=== PATIENT | female | born 1935 | race Caucasian/White ===

== ENCOUNTER 2022-05-14 23:40 | Inpatient (IN) | payer MEDICARE, MEDICAID ==
[~2022-05-14] VITALS: Ht 157.5 cm; Wt 64.9 kg
[2022-05-14] MEDS ORDERED: ACETAMINOPHEN 325MG TABLET PO STA (23:44)
[2022-05-14] MEDS ORDERED: AZITHROMYCIN 500MG/250ML 250 ML IV ONE (23:45)
[2022-05-14] MEDS ORDERED: SODIUM CHLORIDE 0.9% 1,000 ML IV ONE (23:45)
[2022-05-14] MEDS ORDERED: CEFTRIAXONE 1 G PREMIX 50 ML IV ONE (23:45)
[2022-05-15] MEDS ORDERED: ACETAMINOPHEN 650MG SUPP PR ONE
[2022-05-15 00:13] LABS: BASOPHILS % 0.2 % (0.0-2.0); EOSINOPHILS % 0.2 % (0.0-5.0); HEMATOCRIT. 37.3 % (36.0-48.0); HEMOGLOBIN. 11.4 g/dL (12.0-16.0); MEAN CORPUSCULAR VOLUME 98.3 fL (81.0-99.0); MONOCYTES % 6.1 % (2.0-8.0); NEUTROPHILS % 78.5 % (40.0-76.0); PLATELET 270 x1000/uL (130-400); RED BLOOD CELL COUNT 3.79 mill/uL (4.2-5.4); RED CELL DISTRIBUTION WIDTH 16.2 % (11.6-14.6)
[2022-05-15 00:22] LABS: CHLORIDE 115 mEq/L (98-107)
[2022-05-15 00:36] LABS: INR 1.1; PROTHROMBIN TIME 11.4 sec (9.6-11.0)
[2022-05-15 01:13] LABS: CLARITY URINE CLEAR (CLEAR); COLOR URINE YELLOW (YELLOW); KETONES URINE NEGATIVE (NEGATIVE); LEUKOCYTE ESTERASE URINE TRACE (NEGATIVE); NITRITE URINE NEGATIVE (NEGATIVE); OCCULT BLOOD URINE NEGATIVE (NEGATIVE); PROTEIN URINE 1+ (NEGATIVE); SPECIFIC GRAVITY URINE 1.024 (1.005-1.030)
[2022-05-15] MEDS ORDERED: SODIUM CHLORIDE 0.9% 1000ML BAG (SEPSIS BOLUS) IV ONE (04:15)
[2022-05-15] MEDS ORDERED: KETOROLAC 15MG/ML VIAL IV NR (04:17)
[2022-05-15] MEDS ORDERED: GUAIFENESIN 200MG/10ML SUGAR FREE UDC PO PRN (07:45)
[2022-05-15] MEDS ORDERED: DOCUSATE SODIUM 100MG CAPSULE PO PRN (07:45)
[2022-05-15] MEDS ORDERED: IPRATROPIUM/ALBUTEROL 0.5-3(2.5)MG/3ML NEB NEB PRN (07:45)
[2022-05-15] MEDS ORDERED: CLONIDINE 0.1MG TABLET PO PRN (07:45)
[2022-05-15] MEDS ORDERED: KETOROLAC 15MG/ML VIAL IV PRN (07:45)
[2022-05-15] MEDS ORDERED: ACETAMINOPHEN 325MG TABLET PO PRN (07:45)
[2022-05-15] MEDS ORDERED: MAGNESIUM/ALUMINUM HYDROXIDE/SIMETHICONE 30ML UDC PO PRN (07:45)
[2022-05-15] MEDS ORDERED: ZOLPIDEM TARTRATE 5MG TABLET PO PRN (07:45)
[2022-05-15] MEDS ORDERED: ONDANSETRON HCL 4MG/2ML INJ IV PRN (07:45)
[2022-05-15] MEDS: DEXT 5%/0.45% NACL 1000ML 1,000 ML IV SCH ×2 (07:58→18:09)
[2022-05-15] MEDS ORDERED: SODIUM CHLORIDE 0.9% 1000ML BAG (SEPSIS BOLUS) IV NR (08:02)
[2022-05-15] MEDS ORDERED: PIPERACILLIN/TAZ 3.375G PREMIX 50 ML IV SCH (08:06)
[2022-05-15] MEDS ORDERED: NITROGLYCERIN 0.4MG TABLET SL SL PRN (08:15)
[2022-05-15] MEDS ORDERED: VANCOMYCIN 750MG PREMIX 150 ML IV NR (08:30)
[2022-05-15] MEDS ORDERED: PANTOPRAZOLE SODIUM 40 MG/VIAL IV SCH (09:00)
[2022-05-15] MEDS: ZINC SULFATE 220 MG ( 50 ) CAPSULE PO SCH (09:35)
[2022-05-15] MEDS: CHOLECALCIFEROL (D3) 1000 UNIT TABLET PO SCH (09:35)
[2022-05-15] MEDS: ASCORBIC ACID 500 MG TABLET PO SCH ×2 (09:35→21:00)
[2022-05-15] MEDS: ENOXAPARIN 30MG/0.3ML SYR SUBCUT SCH (09:36)
[2022-05-15 10:07] LABS: T4 FREE 1.38 ng/dL (0.76-1.46)
[2022-05-15 10:27] LABS: FOLIC ACID (FOLATE) SERUM 6.3 ng/mL (>5.38)
[2022-05-15 13:16] VITALS: BP 100/55
[2022-05-15 14:00] VITALS: BP 100/55
[2022-05-15 16:00] VITALS: BP 115/64
[2022-05-15] MEDS ORDERED: IPRATROPIUM/ALBUTEROL 0.5-3(2.5)MG/3ML NEB HHN PRN (16:15)
[2022-05-15] MEDS: IPRATROPIUM/ALBUTEROL 0.5-3(2.5)MG/3ML NEB HHN SCH ×2 (17:00→20:42)
[2022-05-15 18:00] VITALS: BP 112/63
[2022-05-15 20:00] VITALS: BP 129/41
[2022-05-15] MEDS ORDERED: PIPERACILLIN/TAZOBACTAM 3.375 G in DEXTROSE 5% WATER 50 ML IV SCH (21:00)
[2022-05-15 22:00] VITALS: BP 114/62
[2022-05-15] MEDS: ACETYLCYSTEINE 100MG/ML 10% VIAL 4ML INH SCH (22:00)
[2022-05-15] MEDS: PIPERACILLIN/TAZOBACTAM 3.375 G in DEXTROSE 5% WATER 50 ML IV SCH (22:04)
[2022-05-16] VITALS (12 sets, daily range): BP systolic 105–141; BP diastolic 43–77
[2022-05-16 00:14] LABS: CREATINE KINASE MB FRACTION 5.7 ng/mL (0.5-3.6)
[2022-05-16] MEDS: DEXT 5%/0.45% NACL 1000ML 1,000 ML IV SCH ×2 (04:20→17:08)
[2022-05-16] MEDS: IPRATROPIUM/ALBUTEROL 0.5-3(2.5)MG/3ML NEB HHN SCH ×5 (04:39→20:47)
[2022-05-16 06:26] LABS: BASOPHILS % 0.2 % (0.0-2.0); EOSINOPHILS % 3.3 % (0.0-5.0); HEMATOCRIT. 27.3 % (36.0-48.0); HEMOGLOBIN. 8.7 g/dL (12.0-16.0); MEAN CORPUSCULAR HEMOGLOBIN 30.2 pg (28.0-32.0); MEAN CORPUSCULAR VOLUME 94.7 fL (81.0-99.0); MEAN PLATELET VOLUME 10.1 fl (7.4-10.4); NEUTROPHILS % 82.5 % (40.0-76.0); PLATELET 198 x1000/uL (130-400); RED BLOOD CELL COUNT 2.88 mill/uL (4.2-5.4); RED CELL DISTRIBUTION WIDTH 15.5 % (11.6-14.6)
[2022-05-16 06:57] LABS: CHLORIDE 122 mEq/L (98-107)
[2022-05-16 07:33] LABS: PHOSPHORUS 2.1 mg/dL (2.5-4.9)
[2022-05-16] MEDS: ACETYLCYSTEINE 100MG/ML 10% VIAL 4ML INH SCH ×3 (08:18→20:47)
[2022-05-16] MEDS: CHOLECALCIFEROL (D3) 1000 UNIT TABLET PO SCH (09:00)
[2022-05-16] MEDS: ASCORBIC ACID 500 MG TABLET PO SCH ×2 (09:00→21:00)
[2022-05-16] MEDS ORDERED: FAMOTIDINE 20MG/2ML VIAL IV SCH (09:00)
[2022-05-16] MEDS ORDERED: KCL 20MEQ/100ML PREMIX 100 ML IV SCH (09:00)
[2022-05-16] MEDS: ZINC SULFATE 220 MG ( 50 ) CAPSULE PO SCH (09:00)
[2022-05-16] MEDS: PIPERACILLIN/TAZOBACTAM 3.375 G in DEXTROSE 5% WATER 50 ML IV SCH ×2 (09:12→21:21)
[2022-05-16] MEDS: ENOXAPARIN 30MG/0.3ML SYR SUBCUT SCH (09:12)
[2022-05-16] MEDS ORDERED: VANCOMYCIN 500MG PREMIX 100 ML IV SCH ×2 (11:00→11:30)
[2022-05-16] MEDS: VANCOMYCIN 750MG PREMIX 150 ML IV SCH (11:52)
[2022-05-16] MEDS ORDERED: MAGNESIUM 2 G PREMIX 50 ML IV NR (14:00)
[2022-05-16] MEDS ORDERED: POTASSIUM PHOS,M-BASIC-D-BASIC 15 MMOL in DEXT 5% WATER 245 ML IV SCH (16:00)
[2022-05-16] MEDS: ACETAMINOPHEN 650MG SUPP PR PRN (16:03)
[2022-05-17] VITALS (11 sets, daily range): BP systolic 117–160; BP diastolic 45–91
[2022-05-17] MEDS: IPRATROPIUM/ALBUTEROL 0.5-3(2.5)MG/3ML NEB HHN SCH ×6 (00:42→20:12)
[2022-05-17] MEDS: PANTOPRAZOLE SODIUM 40 MG/VIAL IV SCH ×3 (00:59→20:07)
[2022-05-17] MEDS: ACETAMINOPHEN 650MG SUPP PR PRN (01:14)
[2022-05-17 06:29] LABS: PHOSPHORUS 2.7 mg/dL (2.5-4.9)
[2022-05-17 06:36] LABS: BASOPHILS % 0.2 % (0.0-2.0); EOSINOPHILS % 1.7 % (0.0-5.0); HEMATOCRIT. 25.5 % (36.0-48.0); HEMOGLOBIN. 8.2 g/dL (12.0-16.0); LYMPHOCYTES % 10.3 % (20.0-50.0); MEAN CORPUSCULAR HEMOGLOBIN 30.3 pg (28.0-32.0); MONOCYTES % 3.7 % (2.0-8.0); NEUTROPHILS % 84.1 % (40.0-76.0); PLATELET 230 x1000/uL (130-400); RED BLOOD CELL COUNT 2.71 mill/uL (4.2-5.4); RED CELL DISTRIBUTION WIDTH 15.5 % (11.6-14.6)
[2022-05-17] MEDS: ACETYLCYSTEINE 100MG/ML 10% VIAL 4ML INH SCH ×3 (07:59→23:59)
[2022-05-17] MEDS: ZINC SULFATE 220 MG ( 50 ) CAPSULE PO SCH (09:00)
[2022-05-17] MEDS: CHOLECALCIFEROL (D3) 1000 UNIT TABLET PO SCH (09:00)
[2022-05-17] MEDS: ASCORBIC ACID 500 MG TABLET PO SCH ×2 (09:00→20:08)
[2022-05-17] MEDS: PIPERACILLIN/TAZOBACTAM 3.375 G in DEXTROSE 5% WATER 50 ML IV SCH ×2 (09:38→20:08)
[2022-05-17] MEDS: ENOXAPARIN 30MG/0.3ML SYR SUBCUT SCH (09:39)
[2022-05-17] MEDS: DEXT 5%/0.45% NACL 1000ML 1,000 ML IV SCH ×2 (09:40→20:07)
[2022-05-17] MEDS: VANCOMYCIN 750MG PREMIX 150 ML IV SCH (13:33)
[2022-05-17] MEDS ORDERED: OMEP20CA14 MT (15:32)
[2022-05-17] MEDS ORDERED: LEVE250T2 MT (15:32)
[2022-05-17] MEDS ORDERED: TELM40TA7 MT (15:32)
[2022-05-17] MEDS ORDERED: DONE-53 MT (15:32)
[2022-05-17] MEDS ORDERED: ATOR10TA69 MT (15:32)
[2022-05-17] MEDS ORDERED: SORBITOL 70% SOLN 30ML PO NR (22:30)
[2022-05-17] MEDS ORDERED: BISACODYL 10MG SUPP PR NR (22:30)
[2022-05-18] VITALS (12 sets, daily range): BP systolic 120–153; BP diastolic 60–81
[2022-05-18] MEDS: IPRATROPIUM/ALBUTEROL 0.5-3(2.5)MG/3ML NEB HHN SCH ×6 (04:02→21:25)
[2022-05-18 06:02] LABS: INR 1.1; PROTHROMBIN TIME 11.9 sec (9.6-11.0)
[2022-05-18 06:09] LABS: HEMATOCRIT. 25.6 % (36.0-48.0); HEMOGLOBIN. 8.2 g/dL (12.0-16.0); MEAN CORPUSCULAR VOLUME 93.1 fL (81.0-99.0); MEAN PLATELET VOLUME 9.8 fl (7.4-10.4); PLATELET 251 x1000/uL (130-400); RED BLOOD CELL COUNT 2.74 mill/uL (4.2-5.4); RED CELL DISTRIBUTION WIDTH 15.2 % (11.6-14.6)
[2022-05-18] MEDS: DEXT 5%/0.45% NACL 1000ML 1,000 ML IV SCH ×2 (06:26→17:56)
[2022-05-18] MEDS: SORBITOL 70% SOLN 30ML PO SCH (08:42)
[2022-05-18] MEDS: CHOLECALCIFEROL (D3) 1000 UNIT TABLET PO SCH (08:42)
[2022-05-18] MEDS: ZINC SULFATE 220 MG ( 50 ) CAPSULE PO SCH (08:42)
[2022-05-18] MEDS: ASCORBIC ACID 500 MG TABLET PO SCH ×2 (08:42→20:33)
[2022-05-18] MEDS: ENOXAPARIN 30MG/0.3ML SYR SUBCUT SCH (08:43)
[2022-05-18] MEDS: PIPERACILLIN/TAZOBACTAM 3.375 G in DEXTROSE 5% WATER 50 ML IV SCH ×3 (08:43→21:29)
[2022-05-18] MEDS: PANTOPRAZOLE SODIUM 40 MG/VIAL IV SCH ×2 (08:43→20:33)
[2022-05-18] MEDS: ACETYLCYSTEINE 100MG/ML 10% VIAL 4ML INH SCH ×2 (08:58→16:37)
[2022-05-18] MEDS: VANCOMYCIN 750MG PREMIX 150 ML IV SCH (11:27)
[2022-05-18] MEDS: LEVETIRACETAM 250 MG in SODIUM CHLORIDE 0.9% 100 ML IV SCH ×2 (13:17→20:33)
[2022-05-18 14:29] LABS: NUCLEATED RED BLOOD CELLS 1 /100 WBC
[2022-05-18 14:30] LABS: PLATELET ESTIMATE NORMAL
[2022-05-19] VITALS (12 sets, daily range): BP systolic 117–157; BP diastolic 57–94
[2022-05-19] MEDS: IPRATROPIUM/ALBUTEROL 0.5-3(2.5)MG/3ML NEB HHN SCH ×6 (00:47→20:08)
[2022-05-19] MEDS: ACETYLCYSTEINE 100MG/ML 10% VIAL 4ML INH SCH ×3 (00:51→16:17)
[2022-05-19] MEDS: DEXT 5%/0.45% NACL 1000ML 1,000 ML IV SCH ×3 (03:13→23:00)
[2022-05-19 04:48] LABS: INR 1.7; PROTHROMBIN TIME 17.1 sec (9.6-11.0)
[2022-05-19] MEDS: PIPERACILLIN/TAZOBACTAM 3.375 G in DEXTROSE 5% WATER 50 ML IV SCH ×2 (05:58→16:41)
[2022-05-19 06:02] LABS: BASOPHILS % 0.3 % (0.0-2.0); EOSINOPHILS % 3.3 % (0.0-5.0); HEMATOCRIT. 27.5 % (36.0-48.0); HEMOGLOBIN. 8.5 g/dL (12.0-16.0); LYMPHOCYTES % 11.5 % (20.0-50.0); MEAN CORPUSCULAR HEMOGLOBIN 30.3 pg (28.0-32.0); MEAN CORPUSCULAR VOLUME 98.1 fL (81.0-99.0); MEAN PLATELET VOLUME 9.1 fl (7.4-10.4); MONOCYTES % 4.6 % (2.0-8.0); NEUTROPHILS % 80.3 % (40.0-76.0); PLATELET 267 x1000/uL (130-400); RED BLOOD CELL COUNT 2.81 mill/uL (4.2-5.4); RED CELL DISTRIBUTION WIDTH 15.8 % (11.6-14.6)
[2022-05-19] MEDS: ENOXAPARIN 30MG/0.3ML SYR SUBCUT SCH (08:33)
[2022-05-19] MEDS: ZINC SULFATE 220 MG ( 50 ) CAPSULE PO SCH (08:33)
[2022-05-19] MEDS: CHOLECALCIFEROL (D3) 1000 UNIT TABLET PO SCH (08:33)
[2022-05-19] MEDS: ASCORBIC ACID 500 MG TABLET PO SCH ×2 (08:33→21:20)
[2022-05-19] MEDS: SORBITOL 70% SOLN 30ML PO SCH ×2 (08:34→15:40)
[2022-05-19] MEDS: PANTOPRAZOLE SODIUM 40 MG/VIAL IV SCH ×2 (08:50→21:20)
[2022-05-19] MEDS: LEVETIRACETAM 250 MG in SODIUM CHLORIDE 0.9% 100 ML IV SCH ×2 (08:51→22:59)
[2022-05-19] MEDS ORDERED: POTASSIUM CHLORIDE INJ 40 MEQ in DEXT 5% WATER 250 ML IV ONE (09:30)
[2022-05-19] MEDS ORDERED: PHYTONADIONE 10MG/ML AMP SUBCUT NR (09:54)
[2022-05-19] MEDS: KCL 20MEQ/100ML X 2 FOR TOTAL KCL 40MEQ/200ML IV SCH ×2 (11:34→21:18)
[2022-05-19 12:44] LABS: INR 1.2; PROTHROMBIN TIME 12.4 sec (9.6-11.0)
[2022-05-19] MEDS ORDERED: DEXAMETHASONE 4MG/ML 1ML VIAL ONE (13:07)
[2022-05-19] MEDS ORDERED: ONDANSETRON HCL 4MG/2ML INJ ONE (13:07)
[2022-05-19] MEDS ORDERED: PROPOFOL 200MG/20ML VIAL IV ONE (13:07)
[2022-05-19] MEDS ORDERED: LIDOCAINE HCL/PF 2% 20MG/ML 5 ML/VIAL ONE (13:17)
[2022-05-19] MEDS: ACETAMINOPHEN 325MG TABLET PO PRN (15:40)
[2022-05-19] MEDS: VANCOMYCIN 500MG PREMIX 100 ML IV SCH (21:17)
[2022-05-20] VITALS (12 sets, daily range): BP systolic 111–127; BP diastolic 58–81
[2022-05-20] MEDS: PIPERACILLIN/TAZOBACTAM 3.375 G in DEXTROSE 5% WATER 50 ML IV SCH ×3 (00:12→13:07)
[2022-05-20] MEDS: IPRATROPIUM/ALBUTEROL 0.5-3(2.5)MG/3ML NEB HHN SCH ×7 (00:16→20:33)
[2022-05-20] MEDS: ACETYLCYSTEINE 100MG/ML 10% VIAL 4ML INH SCH ×3 (00:16→15:47)
[2022-05-20 04:17] LABS: HEMATOCRIT 22.9 % (36.0-48.0); HEMOGLOBIN 7.6 g/dL (12.0-16.0); MEAN CORPUSCULAR HEMOGLOBIN 30.3 pg (28.0-32.0); MEAN CORPUSCULAR VOLUME 91.5 fL (81.0-99.0); PLATELET 276 x1000/uL (130-400); RED CELL DISTRIBUTION WIDTH 14.8 % (11.6-14.6)
[2022-05-20] MEDS: METOCLOPRAMIDE HCL 10MG/2ML VIAL IV SCH ×4 (05:51→23:59)
[2022-05-20] MEDS: ENOXAPARIN 30MG/0.3ML SYR SUBCUT SCH ×2 (09:00→10:40)
[2022-05-20] MEDS: SORBITOL 70% SOLN 30ML PO SCH (09:18)
[2022-05-20] MEDS: DEXT 5%/0.45% NACL 1000ML 1,000 ML IV SCH ×2 (09:18→16:56)
[2022-05-20] MEDS: LEVETIRACETAM 250 MG in SODIUM CHLORIDE 0.9% 100 ML IV SCH ×2 (09:18→21:23)
[2022-05-20] MEDS: PANTOPRAZOLE SODIUM 40 MG/VIAL IV SCH ×2 (09:19→21:23)
[2022-05-20] MEDS: ASCORBIC ACID 500 MG TABLET PO SCH ×2 (09:19→21:23)
[2022-05-20] MEDS: ZINC SULFATE 220 MG ( 50 ) CAPSULE PO SCH (09:19)
[2022-05-20] MEDS: CHOLECALCIFEROL (D3) 1000 UNIT TABLET PO SCH (09:19)
[2022-05-20] MEDS: KETOROLAC 15MG/ML VIAL IV PRN (18:13)
[2022-05-20] MEDS: VANCOMYCIN 500MG PREMIX 100 ML IV SCH (20:13)
[2022-05-20] MEDS ORDERED: EPOETIN ALFA 10000UNITS/ML VIAL SUBCUT SCH (21:00)
[2022-05-20] MEDS: ACETAMINOPHEN 325MG TABLET PO PRN (21:23)
[2022-05-21] VITALS (12 sets, daily range): BP systolic 99–143; BP diastolic 48–70
[2022-05-21] MEDS: ACETYLCYSTEINE 100MG/ML 10% VIAL 4ML INH SCH (00:29)
[2022-05-21] MEDS: IPRATROPIUM/ALBUTEROL 0.5-3(2.5)MG/3ML NEB HHN SCH ×6 (00:31→20:40)
[2022-05-21] MEDS: DEXT 5%/0.45% NACL 1000ML 1,000 ML IV SCH ×3 (06:01→23:15)
[2022-05-21] MEDS: METOCLOPRAMIDE HCL 10MG/2ML VIAL IV SCH ×3 (06:02→18:23)
[2022-05-21] MEDS: KETOROLAC 15MG/ML VIAL IV PRN ×2 (06:02→20:56)
[2022-05-21 06:58] LABS: HEMATOCRIT 22.7 % (36.0-48.0); HEMOGLOBIN 7.4 g/dL (12.0-16.0); MEAN CORPUSCULAR HEMOGLOBIN 30.4 pg (28.0-32.0); MEAN CORPUSCULAR VOLUME 92.9 fL (81.0-99.0); PLATELET 302 x1000/uL (130-400); RED BLOOD CELL COUNT 2.45 mill/uL (4.2-5.4); RED CELL DISTRIBUTION WIDTH 14.7 % (11.6-14.6)
[2022-05-21 07:07] LABS: PHOSPHORUS 2.2 mg/dL (2.5-4.9)
[2022-05-21] MEDS: ENOXAPARIN 30MG/0.3ML SYR SUBCUT SCH (09:39)
[2022-05-21] MEDS: ZINC SULFATE 220 MG ( 50 ) CAPSULE PO SCH (09:39)
[2022-05-21] MEDS: PANTOPRAZOLE SODIUM 40 MG/VIAL IV SCH ×2 (09:39→20:55)
[2022-05-21] MEDS: CHOLECALCIFEROL (D3) 1000 UNIT TABLET PO SCH (09:39)
[2022-05-21] MEDS: ASCORBIC ACID 500 MG TABLET PO SCH ×2 (09:39→20:56)
[2022-05-21] MEDS: SORBITOL 70% SOLN 30ML PO SCH (09:40)
[2022-05-21] MEDS: LEVETIRACETAM 250 MG in SODIUM CHLORIDE 0.9% 100 ML IV SCH ×2 (09:54→20:09)
[2022-05-21] MEDS ORDERED: MAGNESIUM 2 G PREMIX 50 ML IV NR (20:00)
[2022-05-21] MEDS ORDERED: POTASSIUM PHOS,M-BASIC-D-BASIC 30 MMOL in DEXT 5% WATER 500 ML IV NR (21:00)
[2022-05-22] VITALS (16 sets, daily range): BP systolic 103–154; BP diastolic 56–93
[2022-05-22] MEDS: METOCLOPRAMIDE HCL 10MG/2ML VIAL IV SCH (00:11)
[2022-05-22] MEDS: IPRATROPIUM/ALBUTEROL 0.5-3(2.5)MG/3ML NEB HHN SCH ×7 (01:24→23:58)
[2022-05-22 05:49] LABS: HEMATOCRIT. 22.3 % (36.0-48.0); HEMOGLOBIN. 7.2 g/dL (12.0-16.0); MEAN CORPUSCULAR HEMOGLOBIN 29.5 pg (28.0-32.0); MEAN CORPUSCULAR VOLUME 91.6 fL (81.0-99.0); MEAN PLATELET VOLUME 8.5 fl (7.4-10.4); PLATELET 349 x1000/uL (130-400); RED BLOOD CELL COUNT 2.43 mill/uL (4.2-5.4); RED CELL DISTRIBUTION WIDTH 15.7 % (11.6-14.6)
[2022-05-22 06:56] LABS: CHLORIDE 112 mEq/L (98-107)
[2022-05-22 07:03] LABS: PHOSPHORUS 3.7 mg/dL (2.5-4.9)
[2022-05-22] MEDS: SORBITOL 70% SOLN 30ML PO SCH (08:43)
[2022-05-22] MEDS: ENOXAPARIN 30MG/0.3ML SYR SUBCUT SCH (08:44)
[2022-05-22] MEDS: PANTOPRAZOLE SODIUM 40 MG/VIAL IV SCH ×2 (09:32→23:02)
[2022-05-22] MEDS: ZINC SULFATE 220 MG ( 50 ) CAPSULE PO SCH (09:32)
[2022-05-22] MEDS: ASCORBIC ACID 500 MG TABLET PO SCH ×2 (09:32→23:02)
[2022-05-22] MEDS: CHOLECALCIFEROL (D3) 1000 UNIT TABLET PO SCH (09:32)
[2022-05-22] MEDS: LEVETIRACETAM 250 MG in SODIUM CHLORIDE 0.9% 100 ML IV SCH ×2 (09:34→23:02)
[2022-05-22] MEDS: KETOROLAC 15MG/ML VIAL IV PRN (10:21)
[2022-05-22 10:59] LABS: NUCLEATED RED BLOOD CELLS 1 /100 WBC; PLATELET ESTIMATE NORMAL
[2022-05-22] MEDS: DEXT 5%/0.45% NACL 1000ML 1,000 ML IV SCH ×2 (11:06→23:02)
[2022-05-22 17:22] LABS: HEMATOCRIT 29.6 % (36.0-48.0); HEMOGLOBIN 9.7 g/dL (12.0-16.0)
[2022-05-23] VITALS (11 sets, daily range): BP systolic 124–153; BP diastolic 53–118
[2022-05-23] MEDS: IPRATROPIUM/ALBUTEROL 0.5-3(2.5)MG/3ML NEB HHN SCH ×6 (04:11→23:49)
[2022-05-23] MEDS: DEXT 5%/0.45% NACL 1000ML 1,000 ML IV SCH (05:01)
[2022-05-23 06:36] LABS: CHLORIDE 110 mEq/L (98-107)
[2022-05-23 06:39] LABS: HEMATOCRIT. 26.5 % (36.0-48.0); HEMOGLOBIN. 9.1 g/dL (12.0-16.0); MEAN CORPUSCULAR HEMOGLOBIN 31.4 pg (28.0-32.0); MEAN CORPUSCULAR VOLUME 91.5 fL (81.0-99.0); MEAN PLATELET VOLUME 8.4 fl (7.4-10.4); PLATELET 313 x1000/uL (130-400); RED BLOOD CELL COUNT 2.89 mill/uL (4.2-5.4); RED CELL DISTRIBUTION WIDTH 15.2 % (11.6-14.6)
[2022-05-23] MEDS: ZINC SULFATE 220 MG ( 50 ) CAPSULE PO SCH (08:44)
[2022-05-23] MEDS: ASCORBIC ACID 500 MG TABLET PO SCH ×2 (08:44→21:57)
[2022-05-23] MEDS: LEVETIRACETAM 250 MG in SODIUM CHLORIDE 0.9% 100 ML IV SCH ×2 (08:44→21:56)
[2022-05-23] MEDS: PANTOPRAZOLE SODIUM 40 MG/VIAL IV SCH ×2 (08:44→21:56)
[2022-05-23] MEDS: CHOLECALCIFEROL (D3) 1000 UNIT TABLET PO SCH (08:44)
[2022-05-23] MEDS: ENOXAPARIN 30MG/0.3ML SYR SUBCUT SCH (09:00)
[2022-05-23 10:06] LABS: PLATELET ESTIMATE NORMAL
[2022-05-23] MEDS ORDERED: LOPERAMIDE 2MG/15ML UDC PO NR (11:15)
[2022-05-23] MEDS: METRONIDAZOLE 500MG TABLET PO SCH ×2 (15:36→21:56)
[2022-05-24] VITALS: BP 144/68
[2022-05-24 04:00] VITALS: BP 137/63
[2022-05-24] MEDS: IPRATROPIUM/ALBUTEROL 0.5-3(2.5)MG/3ML NEB HHN SCH ×4 (04:06→21:15)
[2022-05-24] MEDS: METRONIDAZOLE 500MG TABLET PO SCH ×3 (06:30→21:00)
[2022-05-24 07:33] LABS: HEMATOCRIT. 26.7 % (36.0-48.0); HEMOGLOBIN. 9.1 g/dL (12.0-16.0); MEAN CORPUSCULAR VOLUME 91.1 fL (81.0-99.0); MEAN PLATELET VOLUME 8.5 fl (7.4-10.4); PLATELET 337 x1000/uL (130-400); RED BLOOD CELL COUNT 2.93 mill/uL (4.2-5.4)
[2022-05-24 07:55] LABS: CHLORIDE 108 mEq/L (98-107)
[2022-05-24 08:00] VITALS: BP 130/73
[2022-05-24] MEDS: LEVETIRACETAM 250 MG in SODIUM CHLORIDE 0.9% 100 ML IV SCH ×2 (09:02→20:49)
[2022-05-24] MEDS: PANTOPRAZOLE SODIUM 40 MG/VIAL IV SCH ×2 (09:02→20:46)
[2022-05-24] MEDS: ZINC SULFATE 220 MG ( 50 ) CAPSULE PO SCH (09:07)
[2022-05-24] MEDS: ASCORBIC ACID 500 MG TABLET PO SCH ×2 (09:07→20:46)
[2022-05-24] MEDS: CHOLECALCIFEROL (D3) 1000 UNIT TABLET PO SCH (09:07)
[2022-05-24] MEDS: ENOXAPARIN 30MG/0.3ML SYR SUBCUT SCH (09:11)
[2022-05-24 12:00] VITALS: BP 141/63
[2022-05-24] MEDS: ACETAMINOPHEN 325MG TABLET PO PRN (12:34)
[2022-05-24 16:00] VITALS: BP 146/73
[2022-05-24 17:21] LABS: PLATELET ESTIMATE NORMAL
[2022-05-24] MEDS ORDERED: DOCUSATE SODIUM SUGAR FREE 100MG/10ML UDC GT PRN (19:50)
[2022-05-24 20:00] VITALS: BP 156/70
[2022-05-25] VITALS (7 sets, daily range): BP systolic 116–155; BP diastolic 63–90
[2022-05-25] MEDS: IPRATROPIUM/ALBUTEROL 0.5-3(2.5)MG/3ML NEB HHN SCH ×4 (01:09→15:53)
[2022-05-25] MEDS: METRONIDAZOLE 500MG TABLET PO SCH ×3 (05:01→21:12)
[2022-05-25 08:05] LABS: BASOPHILS % 0.3 % (0.0-2.0); EOSINOPHILS % 1.6 % (0.0-5.0); HEMATOCRIT. 27.5 % (36.0-48.0); HEMOGLOBIN. 9.4 g/dL (12.0-16.0); LYMPHOCYTES % 12.2 % (20.0-50.0); MEAN CORPUSCULAR HEMOGLOBIN 31.2 pg (28.0-32.0); MEAN CORPUSCULAR VOLUME 91.2 fL (81.0-99.0); MEAN PLATELET VOLUME 8.4 fl (7.4-10.4); MONOCYTES % 5.5 % (2.0-8.0); NEUTROPHILS % 80.4 % (40.0-76.0); PLATELET 354 x1000/uL (130-400); RED BLOOD CELL COUNT 3.01 mill/uL (4.2-5.4); RED CELL DISTRIBUTION WIDTH 14.7 % (11.6-14.6)
[2022-05-25 08:14] LABS: CHLORIDE 105 mEq/L (98-107)
[2022-05-25] MEDS: LEVETIRACETAM 250 MG in SODIUM CHLORIDE 0.9% 100 ML IV SCH ×2 (09:35→20:30)
[2022-05-25] MEDS: PANTOPRAZOLE SODIUM 40 MG/VIAL IV SCH ×2 (09:36→20:30)
[2022-05-25] MEDS: CHOLECALCIFEROL (D3) 1000 UNIT TABLET PO SCH (09:37)
[2022-05-25] MEDS: ASCORBIC ACID 500 MG TABLET PO SCH ×2 (09:37→20:30)
[2022-05-25] MEDS: ENOXAPARIN 30MG/0.3ML SYR SUBCUT SCH (09:37)
[2022-05-25] MEDS: ZINC SULFATE 220 MG ( 50 ) CAPSULE PO SCH (09:37)
[2022-05-25] MEDS ORDERED: SENNOSIDES/DOCUSATE SOD 8.6/50MG TABLET PO PRN (11:00)
[2022-05-25] MEDS: ACETAMINOPHEN 325MG TABLET PO PRN ×2 (11:44→21:14)
[2022-05-26] MEDS: IPRATROPIUM/ALBUTEROL 0.5-3(2.5)MG/3ML NEB HHN SCH ×4 (00:01→22:42)
[2022-05-26 04:00] VITALS: BP 110/62
[2022-05-26] MEDS: METRONIDAZOLE 500MG TABLET PO SCH ×3 (05:18→21:16)
[2022-05-26 07:57] LABS: BASOPHILS % 0.2 % (0.0-2.0); EOSINOPHILS % 1.9 % (0.0-5.0); HEMOGLOBIN. 8.6 g/dL (12.0-16.0); LYMPHOCYTES % 12.9 % (20.0-50.0); MEAN CORPUSCULAR HEMOGLOBIN 31.6 pg (28.0-32.0); MEAN CORPUSCULAR VOLUME 91.6 fL (81.0-99.0); MEAN PLATELET VOLUME 8.3 fl (7.4-10.4); MONOCYTES % 7.9 % (2.0-8.0); NEUTROPHILS % 77.1 % (40.0-76.0); PLATELET 352 x1000/uL (130-400); RED BLOOD CELL COUNT 2.72 mill/uL (4.2-5.4); RED CELL DISTRIBUTION WIDTH 15.3 % (11.6-14.6)
[2022-05-26 08:00] VITALS: BP 110/66
[2022-05-26 08:10] LABS: CHLORIDE 104 mEq/L (98-107)
[2022-05-26] MEDS: ENOXAPARIN 30MG/0.3ML SYR SUBCUT SCH (08:25)
[2022-05-26] MEDS: ZINC SULFATE 220 MG ( 50 ) CAPSULE PO SCH (08:25)
[2022-05-26] MEDS: PANTOPRAZOLE SODIUM 40 MG/VIAL IV SCH ×2 (08:25→21:15)
[2022-05-26] MEDS: CHOLECALCIFEROL (D3) 1000 UNIT TABLET PO SCH (08:25)
[2022-05-26] MEDS: ASCORBIC ACID 500 MG TABLET PO SCH ×2 (08:29→21:15)
[2022-05-26] MEDS: LEVETIRACETAM 250 MG in SODIUM CHLORIDE 0.9% 100 ML IV SCH ×2 (10:18→21:24)
[2022-05-26 12:00] VITALS: BP 108/75
[2022-05-26] MEDS ORDERED: SORBITOL 70% SOLN 30ML PO NR (13:00)
[2022-05-26] MEDS ORDERED: HYDROCODONE/ACETAMINOPHEN 5/325MG TABLET PO NR (13:00)
[2022-05-26 16:00] VITALS: BP 115/60
[2022-05-26 20:00] VITALS: BP 128/79
[2022-05-26] MEDS: SENNOSIDES/DOCUSATE SOD 8.6/50MG TABLET PO SCH (21:00)
[2022-05-27] VITALS: BP 141/69
[2022-05-27 04:00] VITALS: BP 145/90
[2022-05-27] MEDS: METRONIDAZOLE 500MG TABLET PO SCH ×3 (05:58→21:46)
[2022-05-27 08:00] VITALS: BP 150/76
[2022-05-27 08:36] LABS: CHLORIDE 104 mEq/L (98-107)
[2022-05-27 08:38] LABS: HEMATOCRIT. 27.9 % (36.0-48.0); HEMOGLOBIN. 9.5 g/dL (12.0-16.0); MEAN CORPUSCULAR HEMOGLOBIN 31.3 pg (28.0-32.0); MEAN CORPUSCULAR VOLUME 91.8 fL (81.0-99.0); MEAN PLATELET VOLUME 8.1 fl (7.4-10.4); PLATELET 406 x1000/uL (130-400); RED BLOOD CELL COUNT 3.03 mill/uL (4.2-5.4); RED CELL DISTRIBUTION WIDTH 15.7 % (11.6-14.6)
[2022-05-27] MEDS: POLYETHYLENE GLYCOL 3350 (17GM) 1 DOSE PACK PO SCH (09:00)
[2022-05-27] MEDS: SENNOSIDES/DOCUSATE SOD 8.6/50MG TABLET PO SCH (09:00)
[2022-05-27] MEDS: LEVETIRACETAM 250 MG in SODIUM CHLORIDE 0.9% 100 ML IV SCH ×2 (09:23→21:45)
[2022-05-27] MEDS: ZINC SULFATE 220 MG ( 50 ) CAPSULE PO SCH (09:24)
[2022-05-27] MEDS: CHOLECALCIFEROL (D3) 1000 UNIT TABLET PO SCH (09:24)
[2022-05-27] MEDS: ENOXAPARIN 30MG/0.3ML SYR SUBCUT SCH (09:24)
[2022-05-27] MEDS: ASCORBIC ACID 500 MG TABLET PO SCH ×2 (09:24→21:46)
[2022-05-27] MEDS: PANTOPRAZOLE SODIUM 40 MG/VIAL IV SCH ×2 (09:25→21:46)
[2022-05-27] MEDS: IPRATROPIUM/ALBUTEROL 0.5-3(2.5)MG/3ML NEB HHN SCH ×2 (09:40→17:45)
[2022-05-27 12:00] VITALS: BP 157/92
[2022-05-27 16:00] VITALS: BP 134/75
[2022-05-27 18:03] LABS: PLATELET ESTIMATE NORMAL
[2022-05-27 20:00] VITALS: BP 137/79
[2022-05-28] VITALS: BP 106/57
[2022-05-28 04:00] VITALS: BP 108/59
[2022-05-28 05:57] LABS: BASOPHILS % 0.2 % (0.0-2.0); EOSINOPHILS % 0.9 % (0.0-5.0); HEMATOCRIT. 27.5 % (36.0-48.0); HEMOGLOBIN. 9.2 g/dL (12.0-16.0); LYMPHOCYTES % 10.4 % (20.0-50.0); MEAN CORPUSCULAR HEMOGLOBIN 30.7 pg (28.0-32.0); MEAN CORPUSCULAR VOLUME 91.4 fL (81.0-99.0); MEAN PLATELET VOLUME 7.8 fl (7.4-10.4); MONOCYTES % 9.9 % (2.0-8.0); NEUTROPHILS % 78.6 % (40.0-76.0); PLATELET 387 x1000/uL (130-400); RED BLOOD CELL COUNT 3.01 mill/uL (4.2-5.4); RED CELL DISTRIBUTION WIDTH 15.7 % (11.6-14.6)
[2022-05-28] MEDS: METRONIDAZOLE 500MG TABLET PO SCH ×2 (06:01→14:37)
[2022-05-28 06:08] LABS: CHLORIDE 103 mEq/L (98-107)
[2022-05-28 08:00] VITALS: BP 130/67
[2022-05-28] MEDS: ZINC SULFATE 220 MG ( 50 ) CAPSULE PO SCH (08:20)
[2022-05-28] MEDS: IPRATROPIUM/ALBUTEROL 0.5-3(2.5)MG/3ML NEB HHN SCH ×2 (08:20→15:00)
[2022-05-28] MEDS: ASCORBIC ACID 500 MG TABLET PO SCH ×2 (08:20→21:14)
[2022-05-28] MEDS: POLYETHYLENE GLYCOL 3350 (17GM) 1 DOSE PACK PO SCH (08:20)
[2022-05-28] MEDS: CHOLECALCIFEROL (D3) 1000 UNIT TABLET PO SCH (08:20)
[2022-05-28] MEDS: ENOXAPARIN 30MG/0.3ML SYR SUBCUT SCH (08:20)
[2022-05-28] MEDS: PANTOPRAZOLE SODIUM 40 MG/VIAL IV SCH ×2 (08:21→21:14)
[2022-05-28] MEDS: LEVETIRACETAM 250 MG in SODIUM CHLORIDE 0.9% 100 ML IV SCH ×2 (09:57→21:14)
[2022-05-28 12:00] VITALS: BP 146/80
[2022-05-28] MEDS: ACETAMINOPHEN 325MG TABLET PO PRN (14:42)
[2022-05-28 16:00] VITALS: BP 137/83
[2022-05-29] VITALS (7 sets, daily range): BP systolic 101–137; BP diastolic 56–82
[2022-05-29] MEDS: IPRATROPIUM/ALBUTEROL 0.5-3(2.5)MG/3ML NEB HHN SCH ×3 (00:32→16:15)
[2022-05-29 07:17] LABS: HEMATOCRIT 27.9 % (36.0-48.0); HEMOGLOBIN 9.5 g/dL (12.0-16.0); MEAN CORPUSCULAR HEMOGLOBIN 31.4 pg (28.0-32.0); MEAN CORPUSCULAR VOLUME 92.1 fL (81.0-99.0); PLATELET 378 x1000/uL (130-400); RED BLOOD CELL COUNT 3.03 mill/uL (4.2-5.4); RED CELL DISTRIBUTION WIDTH 15.6 % (11.6-14.6)
[2022-05-29 08:02] LABS: CHLORIDE 102 mEq/L (98-107)
[2022-05-29] MEDS: CHOLECALCIFEROL (D3) 1000 UNIT TABLET PO SCH (08:35)
[2022-05-29] MEDS: PANTOPRAZOLE SODIUM 40 MG/VIAL IV SCH (08:36)
[2022-05-29] MEDS: ZINC SULFATE 220 MG ( 50 ) CAPSULE PO SCH (08:36)
[2022-05-29] MEDS: ENOXAPARIN 30MG/0.3ML SYR SUBCUT SCH (08:36)
[2022-05-29] MEDS: POLYETHYLENE GLYCOL 3350 (17GM) 1 DOSE PACK PO SCH (08:36)
[2022-05-29] MEDS: ASCORBIC ACID 500 MG TABLET PO SCH (08:36)
[2022-05-29] MEDS: LEVETIRACETAM 250 MG in SODIUM CHLORIDE 0.9% 100 ML IV SCH (10:14)
[2022-05-29] MEDS ORDERED: PANTOPRAZOLE 40MG DR TABLET PO SCH (12:30)
[2022-05-29] MEDS: ACETAMINOPHEN 325MG TABLET PO PRN (16:13)
[2022-05-29] MEDS ORDERED: LEVETIRACETAM 250MG TABLET PO SCH (21:00)
== END 2022-05-29 21:06 | disposition home health service (06) | DRG 720 ==
LOC: ER 23:40 → 5EST 05-15 06:24 → SUPCPDRO 05-15 07:13 → EDBEDREQSVC 05-15 09:38 → ENRESERV 05-15 10:26 → 5EST 05-15 13:56 → 6EST 05-23 16:35
PROVIDERS: ADMIT Internal Medicine; ATTEND Internal Medicine
PROC: 5A09357 Assistance with Respiratory Ventilation, Less than 24 Consecutive Hours, Continuous Positive Airway Pressure (ICD-10-PCS; 2022-05-14)
PROC: 0DH63UZ Insertion of Feeding Device into Stomach, Percutaneous Approach (ICD-10-PCS; principal; 2022-05-19)
PROC: 0DB78ZX Excision of Stomach, Pylorus, Via Natural or Artificial Opening Endoscopic, Diagnostic (ICD-10-PCS; 2022-05-19)
PROC: 30233N1 Transfusion of Nonautologous Red Blood Cells into Peripheral Vein, Percutaneous Approach (ICD-10-PCS; 2022-05-22)
DX: A41.9 Sepsis, unspecified organism (principal); J96.21 Acute and chronic respiratory failure with hypoxia; J69.0 Pneumonitis due to inhalation of food and vomit; G92.8 Other toxic encephalopathy; E43 Unspecified severe protein-calorie malnutrition; N17.9 Acute kidney failure, unspecified; D63.8 Anemia in other chronic diseases classified elsewhere; I48.92 Unspecified atrial flutter; E86.1 Hypovolemia; E87.0 Hyperosmolality and hypernatremia; D50.9 Iron deficiency anemia, unspecified; K29.70 Gastritis, unspecified, without bleeding; K59.00 Constipation, unspecified; E87.8 Other disorders of electrolyte and fluid balance, not elsewhere classified; R73.9 Hyperglycemia, unspecified; G40.909 Epilepsy, unspecified, not intractable, without status epilepticus; Z20.822 Contact with and (suspected) exposure to COVID-19; F03.90 Unspecified dementia, unspecified severity, without behavioral disturbance, psychotic disturbance, mood disturbance, and anxiety; R65.20 Severe sepsis without septic shock; M17.11 Unilateral primary osteoarthritis, right knee; E87.6 Hypokalemia; R13.12 Dysphagia, oropharyngeal phase; L89.156 Pressure-induced deep tissue damage of sacral region; K44.9 Diaphragmatic hernia without obstruction or gangrene; I10 Essential (primary) hypertension; I49.3 Ventricular premature depolarization; Z86.73 Personal history of transient ischemic attack (TIA), and cerebral infarction without residual deficits; Z79.899 Other long term (current) drug therapy; Z68.26 Body mass index [BMI] 26.0-26.9, adult; Z74.01 Bed confinement status; Z99.81 Dependence on supplemental oxygen
CPT/HCPCS: 36415; 71045; 73560; 74018; 80048; 80053; 80061; 80202; 81003; 82040; 82270; 82550; 82553; 82607; 82728; 82746; 83036; 83540; 83550; 83605; 83615; 83735; 83880; 84100; 84134; 84145; 84439; 84443; 84484; 85014; 85018; 85025; 85027; 85044; 86850; 86900; 86920; 87015; 87045; 87426; 87427; 87449; 87804; 88305; 88312; 88313; 89055; 93005; 93306; 93970; 94640; 94660; 97161; 97162; 97165; 97167; 97530; 97535; 99285; A6261; C9113; C9803; J0456; J0696; J0885; J1100; J1650; J1885; J1953; J2405; J2543; J2704; J2765; J3370; J3430; J3475; J3480; J3490; J7030; J7050; J7060; J7608; P9016; A4315